=== PATIENT | female | born 1970 | race Two or more races ===

== ENCOUNTER 2025-05-25 23:11 | Day surgery (SDC) | payer OTHER, SELFPAY ==
[2025-05-25 18:22] VITALS: BP 113/77
[2025-05-25 19:27] VITALS: BP 146/85
--- NOTE | 2025-05-25 20:53 | ED.GENMED ---
History of Present Illness
General
Chief Complaint: Catheter/Tube Problem
Source: patient
Exam Limitations: none
Time Seen by Provider: 05/25/25 19:32
Nursing documentation reviewed up to this point in time: agreed with
History of Present Illness
History of Present Illness:
The patient is a pleasant 55-year-old female with a past medical history of stage IV breast cancer who is currently undergoing infusion treatments. Patient reports that she is under the care at [facility]. Patient reports that about 5 weeks ago she
had bilateral nephrostomy tubes placed in [facility]. She reports she had 'some thickening' near both of her kidneys which prompted the procedure. Patient is not exactly sure of where the thickening is located. Patient presents today to the
emergency department because she noticed that her right nephrostomy tube has not drained any urine all day. She suspects it was accidentally pulled.
Past History
Past History
ED Past Medical History: Cancer (Stage IV breast cancer with history of mets to the brain. Current mets to the lungs, possible adrenal gland and urinary tract)
ED Past Surgical History: Other
Social History
Tobacco: Other
Alcohol: Other
Drug: None
Personal: Other
Living: with family
Employment: Other
Family History
Family History: Other
Review of Systems
Review of Systems
Allergies reviewed?: Yes
All Other Systems: ROS reviewed and negative except as documented in HPI and ROS
Constitutional: Reports no symptoms
EENT: Reports no symptoms
Respiratory: Reports no symptoms
Cardiac: Reports no symptoms
ABD/GI: Reports no symptoms
: Reports flank pain (Mild right flank pain)
Musculoskeletal: Reports no symptoms
Skin: Reports no symptoms
Neurological: Reports no symptoms
Endocrine: Reports no symptoms
Hematologic/Lymphatic: Reports no symptoms
Psychiatric: Reports no symptoms
Phy Exam
Physical Exam
Physical Exam:
[id number]
Neck-supple. Right chest wall port
Heart sounds regular
Lungs are clear
Abdomen is soft and nontender. Bilateral nephrostomy tubes present
Extremities; no edema, nontender
Skin no rash
Neurological-nonfocal
Psychiatric-calm
Course
Orders/Labs/Results
Orders:
Orders
05/25/25 20:41
CT Abd/pelvis W Iv Cont Urgent
Comment:
Reason For Exam: malfunctioning R nephrostomy tube
05/25/25 20:51
Complete Blood Count/With Diff Urgent
Comprehensive Metabolic Panel Urgent
Abnormal Lab Results
05/25/25
20:51
RBC 3.17 L 10^6/uL
(4.20-5.40)
Hgb 9.7 L g/dL
(12.0-16.0)
Hct 27.6 L %
(37.0-47.0)
RDW 19.9 H %
(11.5-14.5)
Lymphocytes % 18.9 L %
(20.5-51.1)
Monocytes % 10.2 H %
(1.7-9.3)
Sodium 122 L mmol/L
(135-145)
Chloride 91 L mmol/L
(98-107)
Creatinine 1.2 H mg/dL
(0.6-1.0)
Total Protein 6.2 L g/dl
(6.3-8.2)
05/25/25 20:51
05/25/25 20:51
Vital Signs
Initial and Last Documented VS:
Initial Vital Signs
Temp Pulse Resp BP Pulse Ox
97.8 F 94 18 113/77 96
05/25/25 18:22 05/25/25 18:22 05/25/25 18:22 05/25/25 18:22 05/25/25 18:22
Last Documented Vital Signs
Temp Pulse Resp BP Pulse Ox
97.8 F 82 18 146/85 100
05/25/25 18:22 05/25/25 19:29 05/25/25 18:22 05/25/25 19:27 05/25/25 20:58
MDM/Problems Addressed
Differential Diagnosis Includes:
Dislodged right nephrostomy tube, right-sided hydronephrosis, UTI
MDM/Problems Addressed:
Patient presents with acutely dislodged right nephrostomy tube
Chronic conditions affecting care:
Chronic hydronephrosis due to malignancy
Acute Exacerbation and/or Progression of Chronic Illness:
Patient may have acute hydronephrosis due to dislodged nephrostomy tube and cancer progression
*Radiology
Radiology exam reviewed: radiology read reviewed
*Pulse Oximetry
SaO2: 100
Oxygen Mode of Delivery: Room air
Patient hypoxic: no
*EKG
Interpreted by ED Provider?: NA
*Metal Handler Interpretation
Rate: Metal Handler- N/A
*Critical Care Note
Total Time (30-74mins, 75-104mins- exclusive of procedures): Not Applicable
Data Reviewed
Source: patient and family (Daughter who is at the bedside)
Patient Management
Social determinants of health affecting care: Living situation and Strong social support
Discussion with other providers: Hospitalist and Other (Discussed with interventional radiologist, Dr. Britton Thrasher all who recommended CT and will evaluate tomorrow for nephrostomy tube replacement)
ED Attending Note
-
Portions of this chart may have been created with voice recognition software.� Occasional wrong word or��sound alike� substitutions may have occurred due to the inherent limitations of voice recognition software.
Discharge Plan
Departure
Patient Disposition: Admit
Date of Disposition: 05/25/25
Time of Disposition: 20:53
Admit to: Med/Surg
Presentation/result/management discussed w/ accepting MD/DO: Hospitalist
Patient with high blood pressure during this ER visit?: No
Condition: Good
Covid-19: Not Applicable
Discharge Problem:
Dislodged right nephrostomy, Hyponatremia
Referrals:
Dany Bourne MD [Family Provider, Internal Medicine]
Interventions
Interventions:
*Risk Screen - Suicide Last Done: 05/25/25 18:22
*General Assessment Last Done: 05/25/25 18:22
*Neglect/Abuse Screening Last Done: 05/25/25 18:22
DN-Pomcfh-Dvqxubrwxu Assessment Last Done: 05/25/25 19:29
ED-Female Genitourinary Assessment Last Done: 05/25/25 19:29
Discharge Date and Time
Print Language: CZECH
[2025-05-25 21:00] LABS: Hematocrit 27.6 % (37.0-47.0); Hemoglobin 9.7 g/dL (12.0-16.0); Mean Corp Hgb Conc. 35.1 g/dL (33.0-37.0); Mean Corpuscular Volume 87.1 fL (81.0-99.0); Nucleated Red Blood Cells % 0 %; Platelet Count 140 10^3/uL (130-400); Red Cell Dist. Width 19.9 % (11.5-14.5)
--- NOTE | 2025-05-25 21:12 | HPS.HSE ---
Family Physician
-
Family Physician: Dany Bourne
Medical History
Past Medical History
Past Medical History: Reports Cancer (Stage IV breast cancer with mets to brain, lung mets, possible adrenal and urinary tract mets.)
Past Surgical History: Reports Other
Social History
Tobacco: Non-smoker
Alcohol: None
Drug: None
Living: With Family
Family History
Family History: Not pertinent
Allergies / Home Medications
Allergies reflects when Allergies were last updated in [facility].
Home Medications with original date entered in [facility]
Allergy/Medication List:
Allergies
Allergy/AdvReac Type Severity Reaction Status Date / Time
losartan Allergy Unknown Unknown Verified 05/25/25 18:22
metoprolol Allergy Unknown Unknown Verified 05/25/25 18:22
Citalopram 20 mg tablet, 20 mg p.o. daily
Hydrocortisone 5 mg tablets, 5 mg p.o. 3 times daily
Levetiracetam 500 mg tablets, 1000 mg p.o. twice daily
Levothyroxine 75 mcg tablet, 25 mcg p.o. daily
Magnesium oxide 400 mg tablets, 40 mg p.o. daily
Ondansetron 8 mg tablets, 8 mg p.o. 3 times daily as needed nausea or vomiting
Oxybutynin 5 mg tablets, 5 mg p.o. 3 times daily
Oxycodone/acetaminophen 5-325 mg tablets, 1 tablet p.o. every 8 hours as needed moderate pain
Pantoprazole 20 mg tablets, 20 mg p.o. twice daily
Rosuvastatin 10 mg tablets, 10 mg p.o. at bedtime
Tamsulosin 0.4 mg capsule, 0.[address] daily
[address]. Walker 150 mg tablets, 150 mg p.o. twice daily
Physical Exam
Vital Signs
Vital Signs
Temp Pulse Resp BP Pulse Ox
97.8 F 82 18 146/85 100
05/25/25 18:22 05/25/25 19:29 05/25/25 18:22 05/25/25 19:27 05/25/25 20:58
Laboratory Results
-
05/25/25 20:51
Impression/Plan
-
IMPRESSION:
PLAN:
[2025-05-25 21:19] LABS: ALT (SGPT) 15 U/L (0-35); AST (SGOT) 30 U/L (14-36); Albumin 3.7 g/dl (3.5-5.0); Alkaline Phosphatase 84 U/L (38-126); Blood Urea Nitrogen 17 mg/dl (7-17); Calcium 9.5 mg/dl (8.4-10.2); Carbon Dioxide 27 mmol/L (22-30); Chloride 91 mmol/L (98-107); Glucose 90 mg/dl (70-99); Potassium 4.4 mmol/L (3.5-5.1); Sodium 122 mmol/L (135-145); Total Protein 6.2 g/dl (6.3-8.2); eGFR 53.13
--- NOTE | 2025-05-25 22:37 | W.PN.UPDATE ---
Update Note
Progress Note Update
Patient seen in conjunction with nurse practitioner. I agree with the findings and physical. I concur with the assessment and plan unless otherwise stated.
Briefly, this is a 55-year-old female with past medical history significant for metastatic breast cancer with mets to the brain lungs and liver as well as ureter presenting to the emergency department with dislodged nephrostomy tube. She had
bilateral nephrostomy tubes placed at [facility] about 5 weeks ago secondary to obstructive uropathy from metastatic malignancy. She came in today because she noticed that her right nephrostomy tube was not draining urine at all day. She suspected
might have been accidentally pulled.
She denies having any pain. She denies any fevers or chills. She denies any nausea or vomiting. She reports increased water intake due to the decreased output from the nephrostomy tube.
In the emergency department she remains afebrile, blood pressure was 136/85 with a pulse of 82 and she was satting 100% on room air.
CBC was mostly unremarkable with a hemoglobin of 9.7 and normal WBCs and platelets. Electrolytes notable for a sodium of 122, BUN 17 and creatinine of 1.2. LFTs were normal.
CT of the abdomen pelvis shows findings suggesting malfunctioning of the right nephrostomy tube, however the pigtail portion of the right nephrostomy tube appears to be within the region of the right renal pelvis. There is left pleural effusion
with finding suggestive of malignant pleural effusion and adjacent atelectasis. Bony mets noted, infiltrative lymphadenopathy within the abdomen and pelvis and involving both ureters noted.
Assessment and plan
55-year-old female with metastatic breast cancer with bilateral ureteral obstruction secondary to metastatic disease status post bilateral nephrostomy tube coming to the emergency department due to malfunction of the right nephrostomy tube. Renal
function is preserved. She has no signs of an acute infection. Labs were otherwise stable.
Nephrostomy tube malfunction
- Admit to MedSurg observation
- IR consult for tube exchange/replacement
- npo after midnight
- Monitor for infection
Hyponatremia -sodium 122, chronic no acute mental status changes. She reports her last sodium was 127. On citalopram chronically
- Fluid/free water restriction for now
- Continue levothyroxine, check TSH, check a.m. cortisol
- Urine awesome's, urine sodium
- Continue hydrocortisone
- Continue citalopram unless Na drops
- Orthostatic vital sign
DVT PPX - lovenox s/q
Code status - Full code
--- NOTE | 2025-05-25 23:03 | HPS.HSE ---
Family Physician
-
Family Physician: Dany Bourne
Chief Complaint
-
Malfunctioning Right Nephrostomy Tube
History of Present Illness
Patient is a 55 y/o female past medical history of metastatic breast cancer with prior brain and current lung and adrenal mets who presents with malfunctioning right nephrostomy tube. Patient reports tubes were placed about 5 weeks ago due to
'thickening of ureters'. She thinks the right tube may have been pulled because it has not drained any urine since this morning. Patient reports left tube seems to functioning at baseline. Patient denies any fevers, sweats or chills.
Medical History
Past Medical History
Past Medical History: Reports Other
Additional Past Medical History:
Stage IV Breast Cancer
Seizure Disorder
Chronic Hyponatremia
Depression
Hypothyroidism
Past Surgical History: Reports Other
Additional Past Surgical History:
Bilateral Nephrostomy Tune
Left Breast Lumpectomy with Lymph Node Dissection
Brain Tumor Resection
Social History
Tobacco: Non-smoker
Alcohol: None
Family History
Family History: Not pertinent
Allergies / Home Medications
Allergies reflects when Allergies were last updated in [facility].
Home Medications with original date entered in [facility]
Allergy/Medication List:
Allergies
Allergy/AdvReac Type Severity Reaction Status Date / Time
losartan Allergy Unknown Unknown Verified 05/25/25 18:22
metoprolol Allergy Unknown Unknown Verified 05/25/25 18:22
Home Medications
cholecalciferol (vitamin D3) 50 mcg (2,000 unit) tablet (Vitamin D3) 50 mcg PO DAILY 05/25/25
citalopram 20 mg tablet 20 mg PO DAILY 05/25/25
hydrocortisone 5 mg tablet 5 mg PO HS 05/25/25
hydrocortisone 5 mg tablet 10 mg PO DAILY 05/25/25
levetiracetam 500 mg tablet 500 mg PO BID 05/25/25
levothyroxine 75 mcg tablet 75 mcg PO DAILY 05/25/25
magnesium oxide 400 mg (241.3 mg magnesium) tablet 400 mg PO DAILY 05/25/25
oxycodone-acetaminophen 5 mg-325 mg tablet 1 tab PO Q8HPRN PRN Pain 05/25/25
vitamin B complex 1 tab PO DAILY 05/25/25
Review of Systems
-
History Source: Patient
A 12 point ROS was completed and negative except as noted: Yes
Constitutional: Denies Fever or Chills
Respiratory: Denies Cough or Trouble Breathing
Cardiac: Denies Chest Pain or Palpitations
Abdomen/GI: Denies Abdominal Pain, Nausea or Vomiting
Physical Exam
Vital Signs
Vital Signs
Temp Pulse Resp BP Pulse Ox
97.8 F 82 18 146/85 100
05/25/25 18:22 05/25/25 19:29 05/25/25 18:22 05/25/25 19:27 05/25/25 20:58
Physical Exam
General: Comfortable and Conversant
HEENT: Anicteric and Moist mucous membranes
Respiratory: Clear and Non Labored Respirations
Cardiac: S1/S2 and Regular Rhythm
GI: Soft and Non Tender
Genito-urinary: Clear Urine and Nephrostomy Tubes (Bilateral)
Musculoskeletal: No Clubbing, No Cyanosis and No Edema
Skin: Warm and Dry
Neuro: Awake, Alert, Oriented and Nonfocal/grossly intact
Psych: Calm
Laboratory Results
-
05/25/25 20:51
05/25/25 20:51
Laboratory Results
Total Bilirubin 1.2 mg/dl (0.2-1.3) 05/25/25 20:51
AST 30 U/L (14-36) 05/25/25 20:51
ALT 15 U/L (0-35) 05/25/25 20:51
Alkaline Phosphatase 84 U/L (38-126) 05/25/25 20:51
Data Reviewed
-
CT Scan: Report Reviewed by me
Lab Data: Labs Reviewed by me
Impression/Plan
-
Malfunctioning Right Nephrostomy Tube
-Consult IR for likely tube exchange tomorrow
Chronic Hyponatremia
-Sodium level last week was ~127 per patient
-Patient reports drinking excess fluid today due to low nephrostomy output
-Check urine sodium and urine osmo
-Reviewed fluid restriction 48 oz/day
Stage IV Breast Cancer
-Patient reports prior brain mets s/p resection
-Patient with known lung mets, adrenal mets and ureteral thickening (also likely metastatic)
-CT scan raises concern for hepatic and bone mets
-Patient follows at [facility]
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
-Continue hydrocortisone
Seizure Disorder
-Continue Keppra
Depression
-Continue citalopram
Hypothyroidism
-Continue levothyroxine
DVT proph: Lovenox
Code Status: Full Code
[2025-05-26 00:59] VITALS: BP 141/82; BMI 21.3
[2025-05-26 01:02] VITALS: BMI 21.3
--- NOTE | 2025-05-26 06:07 | PTCARENOTE ---
Patient arrived on unit @0048, ambulate to bed. Patient AAOx3 with pain level 2/10 that is tolerable. Patient's skin assessment completed, oriented to unit, call caballero within reach.
[2025-05-26] MEDS: SYNTHROID 75 MCG PO (06:24)
[2025-05-26 06:36] LABS: Hematocrit 27.8 % (37.0-47.0); Hemoglobin 9.6 g/dL (12.0-16.0); Mean Corp Hgb Conc. 34.5 g/dL (33.0-37.0); Mean Corpuscular Volume 90.3 fL (81.0-99.0); Platelet Count 118 10^3/uL (130-400); Red Cell Dist. Width 19.9 % (11.5-14.5)
[2025-05-26 06:40] LABS: INR 0.94; PT 12.9 Sec (11.4-14.6)
[2025-05-26 07:00] LABS: Blood Urea Nitrogen 18 mg/dl (7-17); Calcium 9.2 mg/dl (8.4-10.2); Carbon Dioxide 24 mmol/L (22-30); Chloride 92 mmol/L (98-107); Estimated Creatinine Clearance 37 ml/min; Glucose 86 mg/dl (70-99); Magnesium 1.9 mg/dl (1.6-2.3); Potassium 4.1 mmol/L (3.5-5.1); Sodium 123 mmol/L (135-145); eGFR 37.62
[2025-05-26 07:30] VITALS: BP 125/72
[2025-05-26 07:31] LABS: Cortisol, Random 12.4 ug/dl
[2025-05-26] MEDS: CELEXA 20 MG PO (08:48)
[2025-05-26] MEDS: KEPPRA 500 MG PO (08:48)
[2025-05-26] MEDS: CORTEF 10 MG PO (08:48)
[2025-05-26] MEDS: MAGNESIUM OXIDE 400 MG PO (08:48)
--- NOTE | 2025-05-26 09:33 | W.PN.HOSP.TC ---
Today's Communication/Plan
-
IR consult
Assessment / Plan
Assessment / Plan
Gen-AAOx3, NAD
HEENT-NC, AT, anicteric, clear oral mm
Neck-supple
CV-reg, no M, +S1/S2
Lungs-clear B/L
Abd-soft, NT, ND
Ext-no edema
Musculoskeletal-no cyanosis, clubbing
Skin-warm and dry
Neuro-grossly non-focal
Psych-calm, cooperative
SUJATA -due to nephrostomy tube malfunction on the right side. CT scan shows moderate to severe right hydronephrosis.
Creatinine unfortunately rising, 1.6 today. She states her last creatinine was last week, 0.7.
IR consulted for new nephrostomy tube placement on the right.
Patient eager to go home after new nephrostomy tube placement today. She does have an appointment with her oncologist (Dr. Ellis) at [facility] on and she plans to get repeat BMP done then.
Hyponatremia -suspect SIADH due to malignancy. Continue fluid restriction.
Stage IV breast cancer -follow-up with [facility].
Pancytopenia -possibly related to metastatic breast cancer. Follow-up as outpatient.
Hypothyroidism -continue levothyroxine.
Epilepsy -continue AEDs.
Adrenal insufficiency - due to metastatic breast cancer. Continue hydrocortisone.
Depression -on citalopram.
Full code
Dispo -discharge later today.
Anticipated Discharge: Today
Subjective/Interval History
-
Date of Service: May 26, 2025
Patient seen and examined. No complaints.
Objective Data
-
Labs:
Laboratory Results
05/26/25
06:01
WBC 4.0 L
Hgb 9.6 L
Hct 27.8 L
Plt Count 118 L
PT 12.9
INR 0.94
Sodium 123 L
Potassium 4.1
Chloride 92 L
Carbon Dioxide 24
BUN 18 H
Creatinine 1.6 H
Glucose 86
Calcium 9.2
Vital Signs:
Vital Signs
Temp Pulse Resp BP Pulse Ox
98.1 F 96 16 125/72 99
05/26/25 07:30 05/26/25 07:30 05/26/25 07:30 05/26/25 07:30 05/26/25 07:30
I&O
05/25/25 05/26/25 05/27/25
06:59 06:59 06:59
Output Total 50 / 50
Balance -50 / -50
Review of Systems
-
History Source: Patient
All other systems: Reviewed and negative
--- NOTE | 2025-05-26 10:14 | W.DS.TRANS ---
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
-
Discharge Instructions:
Discharge Diagnosis/Procedures Right nephrostomy tube dislodgment, acute kidney
injury
Diet Regular,Restrict fluids to 48 oz
Activity As tolerated
Driving Restrictions No driving for 24 hours
Bathing Restrictions None
Instructions:
Stand-Alone Forms:
Changes to Home Medications: No
Discharge Medications:
DC Medications w/original date entered in [facility]
cholecalciferol (vitamin D3) 50 mcg (2,000 unit) tablet (Vitamin D3) 50 mcg PO DAILY Supplement 05/25/25
citalopram 20 mg tablet 20 mg PO DAILY Mental Health/Anxiety 05/25/25
hydrocortisone 5 mg tablet 5 mg PO HS adrenal insufficiency 05/25/25
hydrocortisone 5 mg tablet 10 mg PO DAILY adrenal insufficiency 05/25/25
levetiracetam 500 mg tablet 500 mg PO BID Seizures 05/25/25
levothyroxine 75 mcg tablet 75 mcg PO DAILY Thyroid 05/25/25
magnesium oxide 400 mg (241.3 mg magnesium) tablet 400 mg PO DAILY Electrolyte Repletion 05/25/25
oxycodone-acetaminophen 5 mg-325 mg tablet 1 tab PO Q8HPRN PRN Pain 05/25/25
vitamin B complex 1 tab PO DAILY Supplement 05/25/25
Home Medication Changes
Pending Results: No
[2025-05-26 10:23] VITALS: BMI 21.3
--- NOTE | 2025-05-26 11:12 | CM ---
Alert awake oriented patient who lives with her dgt Ana in a 2 story home with 3 steps to enter and 20 steps to bed/bathroom. She is assisted in activates of daily living.She does not drive .She uses no adaptive devices.Pt for IR procedure
today then dc . Explained Observation status to dgt all questions answered she did not sign.Offered VN she declined need.
No VN in past . No SNF hx
Pharmacy [facility]
PCP Dr Bourne
PLAN Home with no needs
[2025-05-26 12:25] VITALS: BP 129/83; BP_SYST 95
[2025-05-26 13:13] VITALS: BP 142/78
== END 2025-05-26 14:18 | disposition home or self-care (01) ==
LOC: SDS 23:11
PROVIDERS: Physician Assistant Medical; CONSULT PHYSICIAN Radiology Vascular & Interventional Radiology; EMERGENCY PHYSICIAN Emergency Medicine; FAMILY PHYSICIAN Internal Medicine
DX: T83.092A Other mechanical complication of nephrostomy catheter, initial encounter (principal); Y83.1 Surgical operation with implant of artificial internal device as the cause of abnormal reaction of the patient, or of later complication, without mention of misadventure at the time of the procedure; C50.911 Malignant neoplasm of unspecified site of right female breast; E27.40 Unspecified adrenocortical insufficiency; N13.1 Hydronephrosis with ureteral stricture, not elsewhere classified
CPT/HCPCS: 50435; 74177; 80048; 80053; 82533; 83735; 83930; 83935; 84300; 84443; 85025; 85027; 85610; 99285; C1729; C1769; G0378; Q9967